=== PATIENT | male | born 1950 | race Caucasian/White ===

== ENCOUNTER 2018-06-24 22:41 | Emergency (ER) | payer MEDICARE, BC ==
[2018-06-24 23:25] LABS: CHLORIDE,CL 82 mmol/L (98-107)
[2018-06-24 23:30] LABS: SODIUM,NA 118 mmol/L (136-145)
[2018-06-24] MEDS ORDERED: Sodium Chloride 0.9% 1,000 ML IV SCH (23:45)
--- NOTE | 2018-06-24 23:58 | EDM.PDOC ---
ED HPI GENERAL MEDICAL PROBLEM - General Chief Complaint: General Stated Complaint: left lower extremity pain and swelling Time Seen by Provider: 06/24/18 22:53 Source of Information: Reports: Patient History Limitations: Reports: No Limitations - History of Present Illness INITIAL COMMENTS - FREE TEXT/NARRATIVE: Pt presents with bruising of posterior left lower extremity Has been present for at least a month extends from knee to heel No known trauma No medications No previous hx/o bleeding issues No OTC supplements No other specific complaints No falls, No confusion No weakness Drinks moderate amount of water each day No others in home with bruising issues Onset: Gradual Duration: Week(s): Location: Reports: Lower Extremity, Left Quality: Reports: Ache, Dull Severity: Moderate left lower extremity Pain Score (Numeric/FACES): 6 - Related Data Allergies Allergy/AdvReac Type Severity Reaction Status Date / Time No Known Allergies Allergy Verified 06/24/18 22:42 Home Meds: Home Meds . [No Known Home Meds] 06/24/18 [History] Past Medical History - Past Health History Medical/Surgical History: Denies Medical/Surgical History Social & Family History - Tobacco Use Smoking Status *Q: Current Every Day Smoker Years of Tobacco use: 25 Packs/Tins Daily: 0 Used Tobacco, but Quit: No Second Hand Smoke Exposure: No - Caffeine Use Caffeine Use: Reports: Soda Other Caffeine Use: occasional - Recreational Drug Use Recreational Drug Use: No ED ROS GENERAL - Review of Systems Review Of Systems: See Below Respiratory: Reports: No Symptoms Cardiovascular: Reports: No Symptoms GI/Abdominal: Reports: No Symptoms Musculoskeletal: Reports: Muscle Pain, Other (Pain, swelling and bruising of posterior left lower extremities) Neurological: Reports: No Symptoms ED EXAM, GENERAL - Physical Exam Exam: See Below Exam Limited By: No Limitations General Appearance: No Apparent Distress Throat/Mouth: Normal Oropharynx Neck: Supple Respiratory/Chest: Lungs Clear Cardiovascular: Regular Rate, Rhythm GI/Abdominal: Soft, Non-Tender Back Exam: Normal Inspection Extremities: Other (Left posterior lower extremity with significant bruising No erythema No masses Pulses palpable Right lower extremity with minimal bruisng at ankle) Neurological: No Motor/Sensory Deficits Course - Vital Signs Last Recorded V/S: Last Vital Signs Temp 36.1 C 06/24/18 22:52 Pulse 80 06/24/18 22:52 Resp 18 06/24/18 22:52 BP 121/67 06/24/18 22:52 Pulse Ox 98 06/24/18 22:52 - Orders/Labs/Meds Orders: Active Orders 24 hr Category Date Time Status Sodium Chloride 0.9% [Normal Saline] 1,000 ml Med 06/24/18 23:45 Ordered IV ASDIRECTED Medication Orders Sodium Chloride (Normal Saline) 1,000 mls @ 1,000 mls/hr IV ASDIRECTED VANDANA Labs: Laboratory Tests 06/24/18 06/24/18 06/24/18 Range/Units 23:05 23:10 23:10 WBC 9.8 (4.0-10.2) K/uL RBC 4.48 (4.33-5.41) M/uL Hgb 13.9 (13.1-16.8) g/dL Hct 37.5 L (39.0-49.0) % MCV 83.7 L (84.0-98.0) fL MCH 31.0 (28.2-33.3) pg MCHC 37.1 H (31.7-36.0) g/dL RDW 13.3 (11.2-14.1) % Plt Count 293 (150-350) K/uL Add Manual Diff Yes Neutrophils % (Manual) 88 Band Neutrophils % 3 Lymphocytes % (Manual) 4 Monocytes % (Manual) 5 Absolute Neutrophils 8.9180 Lymphocytes # (Manual) 0.3920 Monocytes # (Manual) 0.4900 PT 22.5 H (9.5-12.0) SEC INR 2.1 Sodium 118 L* (136-145) mmol/L Potassium 4.4 (3.5-5.1) mmol/L Chloride 82 L (98-107) mmol/L Carbon Dioxide 19.9 L (21.0-32.0) mmol/L BUN 19 H (7-18) mg/dL Creatinine 1.20 H (0.51-1.17) mg/dL Est Cr Clr Drug Dosing 59.38 mL/min Estimated GFR (MDRD) > 60 mL/min Glucose 134 H (74-106) mg/dL Calcium 8.4 L (8.5-10.1) mg/dL Meds: Medications Generic Name Dose Route Start Last Admin Trade Name Freq PRN Reason Stop Dose Admin Sodium Chloride 1,000 mls @ 1,000 mls/hr 06/24/18 23:45 Normal Saline IV ASDIRECTED [facility] - Re-Assessments/Exams Free Text/Narrative Re-Assessment/Exam: 06/24/18 23:58 Pt with lower Na and Cl Pt given 1 L NS in ER Pt desires to be d/c'd to follow up in [place] Pt to follow up for repeat lab and evaluation of hyponatremia and lower extremity bruising to include ultrasound Departure - Departure Time of Disposition: 01:00 Disposition: Home, Self-Care 01 Clinical Impression: Abnormal bruising, Hyponatremia - Discharge Information *PRESCRIPTION DRUG MONITORING PROGRAM REVIEWED*: Not Applicable *COPY OF PRESCRIPTION DRUG MONITORING REPORT IN PATIENT ORLY: Not Applicable Instructions: Tramadol tablets Forms: ED Department Discharge Additional Instructions: Follow up in clinic for recheck Return to ER if worse - My Orders Last 24 Hours: My Active Orders 06/24/18 23:45 Sodium Chloride 0.9% [Normal Saline] 1,000 ml IV ASDIRECTED - Assessment/Plan Last 24 Hours: My Active Orders 06/24/18 23:45 Sodium Chloride 0.9% [Normal Saline] 1,000 ml IV ASDIRECTED
== END 2018-06-25 01:10 | disposition home or self-care (01) ==
LOC: LL.ED 22:41
DX: S80.12XA Contusion of left lower leg, initial encounter (principal); F17.210 Nicotine dependence, cigarettes, uncomplicated; E87.1 Hypo-osmolality and hyponatremia; X58.XXXA Exposure to other specified factors, initial encounter
CPT/HCPCS: 36415; 80048; 85025; 85610; 96360; 99283; J7030